=== PATIENT | female | born 1995 | race Two or more races ===

== ENCOUNTER → 2024-03-06 | Outpatient (CLI) | payer MEDICAID, SELFPAY ==
--- NOTE | 2024-03-06 09:45 | XR_ITS ---
Examination: Abdomen sonogram, complete Date and time of exam: March 06, 2024 0939 hours INDICATIONS: Elevated liver enzymes on laboratory examination one month ago. Technique: Multiple real-time grayscale transabdominal sonographic images of the abdomen have been obtained. Findings: Normal gallbladder Normal common bile duct 0.2 cm Pancreatic head 2.1 cm Aorta not enlarged Liver 15.7 cm fatty infiltration smooth contour no focal liver lesions Normal hepatopedal portal venous flow Patent IVC Right kidney 11.4 x 4.4 x 5.2 cm renal cortex 2.9 cm Left kidney 9.9 x 4.8 x 5.3 cm cortex 1.2 cm Mild left renal parenchymal scar formation No hydronephrosis Spleen 12.1 cm IMPRESSION: Normal gallbladder Fatty liver Mild left renal parenchymal scar formation No hydronephrosis or renal calculi
== END | disposition home or self-care (01) ==
PROVIDERS: PCP Nurse Practitioner Family; Referring Provider Nurse Practitioner Family; Visit Provider Nurse Practitioner Family
DX: K76.0 Fatty (change of) liver, not elsewhere classified (principal); N28.89 Other specified disorders of kidney and ureter
CPT/HCPCS: 76700